=== PATIENT | male | born 1990 | race Caucasian/White ===

== ENCOUNTER 2019-05-05 16:42 | Emergency (ER) | payer OTHER, MEDICAID, SELFPAY ==
[2019-05-05 16:49] VITALS: BP 126/78; PULSE 69; RESP 16; TEMP 37.1; O2SAT 97; BMI 25.0
[2019-05-05 17:43] LABS: Add Manual Diff / Slide Review NO; Basophils Absolute Auto 0 /uL (0-100); Eosinophils Absolute Auto 200 /uL (0-450); Eosinophils Percent Auto 3.5 % (2-4); Hematocrit 43.5 % (41-53); Hemoglobin 15.2 g/dL (13.5-17.5); Lymphocytes Absolute Auto 1600 /uL (1100-4500); Lymphocytes Percent Auto 33.4 % (25-40); Mean Corpuscular HGB Conc 34.9 % (30-36); Mean Corpuscular Hemoglobin 30.8 PG (26-34); Mean Corpuscular Volume 88.2 fL (80-100); Monocytes Absolute Auto 600 /uL (0-900); Monocytes Percent Auto 12.6 % (3-14); Neutrophils Absolute Auto 2300 /uL (1500-7000); Neutrophils Percent Auto 49.5 % (50-75); Platelet Count 196 X10^3/uL (150-400); Red Blood Cell Count 4.93 X10^6/uL (4.5-5.9); Red Cell Distribution Width 12.5 % (11.6-14.8); White Blood Cell Count 4.7 X10^3/uL (4.5-11.0)
[2019-05-05 17:58] LABS: UR Morphine/Opiate cutoff 300 Negative (Negative); Ur Creatinine Normal (Normal); Ur Specific Gravity Normal (Normal); Urine Amphetamines Negative (Negative); Urine Barbiturates Negative (Negative); Urine Benzodiazepines Negative (Negative); Urine Cocaine Negative (Negative); Urine MDMA Negative (Negative); Urine Methadone Negative (Negative); Urine Methamphetamines Negative (Negative); Urine Oxycodone Negative (Negative); Urine Phencyclidine Negative (Negative); Urine Tetrahydrocannabinol Positive (Negative); Urine Tricyclic Antidepressant Negative (Negative); Urine pH Normal (Normal)
[2019-05-05 18:04] LABS: Acetaminophen < 10 ug/mL (10-30); Alanine Aminotransferase 26 IU/L (<50); Albumin 4.6 g/dL (3.5-5.0); Albumin Globulin Ratio 1.7 (1.0-2.8); Alkaline Phosphatase 62 U/L (38-126); Aspartate Aminotransferase 25 IU/L (17-59); BUN Creatinine Ratio 25.7 (6-22); Bilirubin Total 0.4 mg/dL (0.2-1.3); Blood Urea Nitrogen 18 mg/dL (9-20); Calcium 9.6 mg/dL (8.4-10.2); Carbon Dioxide 28 mmol/L (22-32); Chloride 102 mmol/L (98-107); Estimated Glomerular Filt Rate > 60.0 mL/min (>60); Ethanol (ETOH) < 10 mg/dL; Globulin 2.7 g/dL (1.7-4.1); Glucose 81 mg/dL (70-100); HEMOLYSIS < 15 (0-50); Potassium 4.1 mmol/L (3.4-5.1); Salicylate < 1.0 mg/dL (<20); Sodium 138 mmol/L (137-145); Total Protein 7.3 g/dL (6.3-8.2)
[2019-05-05 18:35] LABS: Thyroid Stimulating Hormone 2.35 uIU/mL (0.47-4.68)
--- NOTE | 2019-05-05 18:51 | CM.SWNOTE ---
Discharge Planning/Care Management ED Psychiatric Symptoms Assessment Start: 05/05/19 16:56 Freq: Status: Active Protocol: Document 05/05/19 17:30 KD (Rec: 05/05/19 18:29 KD [id number]) Psychiatric Symptoms Assessment Symptoms/Complaint Feels Depressed Onset off and on for about a year. Worse over last few days. Duration Changing Over Time History Of Same Yes Context New Medications,Significant Life Stressor Improves With Nothing Worsens With Nothing Associated Psychiatric Symptoms Depression,Racing Thoughts, Suicidal Ideation If Self Harm Admits Thoughts of Self Harm Details of Plan Denies plan. Vague thoughts of harm. overall depressed. Level of Consciousness Alert,Appropriate,Awake, Follows Commands Patient Orientation Name,Age,Birthday,Month,Date, Year,Day of Week,Place, Situation Patient Behavior/Mood Anxious,Cooperative,Suspicious ,Talkative Ability to Follow Directions Good Patient Cognition Impaired No Affect Description Anxious,Depressed Patient Appearance Unkempt Hallucination Type None Delusion Description Not Present Thought Process: Disorganized,Flight of ideas Depressive Symptoms Difficulty Concentrating, Difficulty Making Decisions, Feelings of Guilt,Feelings of Worthlessness,Hopelessness, Increased Anxiety,Increased Irritability,Isolating Oneself From Friends and Family,Loss of Energy,Loss of Interest in Activities,Sleeping More Than Usual,Recurrent Thoughts of or Suicide,Unhappiness Feelings of Hopelessness Yes Suicidal Ideation Vague Suicide Plan No Plan Homicidal Ideation None Nausea/Vomiting None CERAMICS TECHNICIAN - Microbiology Lab Technician Assessment Start: 05/05/19 18:20 Freq: Status: Active Protocol: Document 05/05/19 18:20 DPL (Rec: 05/05/19 18:50 DPL [id number]) CERAMICS TECHNICIAN/Microbiology Lab Technician Assessment Start date 05/05/19 Visit Start Time 05:10 End date 05/05/19 Presenting Problem Pt presents to the ED with severe, worsening depression and anhedonia. He states that his parents urged him to go to the ED due to increasing debilitation and worsening symptoms. He expresses not wanting to live, not feeling like I belong in this world, not finding anything meaningful, not feeling attached emotionally or physically. He denies a plan to end his life, but states that his life feels worthless, no hope. 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 He presents as detached, flat affect, evasive with answers to questions at times with responding I just don't know, I don't know anything. He is actively wanting help and is willing to pursue inpt MH treatment. This CERAMICS TECHNICIAN assessed him as high risk for this depression worsening and becoming a suicide risk. Current Behavioral Health Provider(s) Pt does see a therapist [facility], Ph. # Simeon [facility], which he has only seen once, but has plans to continue with. He was started on Lexapro 10mg 1- month ago, with no benefit. Psychiatric Hospitalizations (date(s)/ No location) Support System(s) Grandmother, local uncle. His parents reside in [place] , but are supportive by phone. School/Work Unemployed Legal Matters - Outstanding Issues N/A Orientation (Person/Place/Time) Pt is oriented X3, decisional. Affect Flat, sad. Thought Content - Specify/Describe Pt is obsessed with all of his Obsessions, Delusions, Hallucinations failures. He states that all he can think of is how bad his life is and what a failure he has been for a long time. He' s unable to identify anything meaningful in his life, and feels like he is barely existing. Thought Processes (Gecfkuo-Xmbrcoqb-Bvfu Thought blocking, somewhat Flpwglmi-Anbzaxlk-Nfavpqxqjx- disorganized, congruent at Ejjehxdbqpktzo-Joiyqbs-Csrmimxedpmk- other times. Thought Blocking) Speech (Hfajuo-Qcpx-Nyrmcsx-Rapid-Soft- Very controlled speech, on the Loud-Pressured) verge of agitation. Motor (Ssvwgm-Cpcicspzc-Ecex-Other) Slow Insight (Present-Partially Present- Impaired Impaired) Judgement (Intact-Impaired) Impaired Impulse Control (Adequate-Impaired) Impaired. Pt states he drove around aimlessly until finally coming to the ED for help. Memory (Elbjwschn-Dqytul-Tnsriw, Intact Impaired-Intact) Concentration (Intact-Impaired) Impaired Attention (Intact-Impaired) Hard to assess, he can focus with intention when he wants to. Behavior (Appropriate-Inappropriate) Appropriate Suicidal Ideation (Plan) Passive suicidal ideation with no plan. Intervention CERAMICS TECHNICIAN met with pt and assessed status and risk, as well as resources and services currently being utilized in the community. He is assessed as high risk for self harm and poor judgement for maintaining safety. He is wanting inpt MH support after meeting w/CERAMICS TECHNICIAN and discussing options. CERAMICS TECHNICIAN is faxing clinicals to [facility] for screening, will continue with this plan. Pt has been medically cleared. RA Plan Primary plan is for inpt MH hospitalization due to high risk factors. CERAMICS TECHNICIAN also discussed the availability of the Crisis Line and plan to f/ u with his therapist for continued outpatient therapy following inpt stabilization.
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
[2019-05-05 19:15] VITALS: BP 118/60; PULSE 50; RESP 12; O2SAT 98
--- NOTE | 2019-05-05 21:11 | PC.NURSE ---
Pt given a sandwich and water.
[2019-05-05 23:00] VITALS: BP 120/62; PULSE 55; RESP 12; O2SAT 98
--- NOTE | 2019-05-06 00:37 | PC.NURSE ---
At 0041 on 05/06/2019,25 ml heparin infused and it was running at 1,000 units per hour when transported.
[2019-05-06 02:57] VITALS: BP 119/60; PULSE 56; RESP 14; O2SAT 98
--- NOTE | 2019-05-06 05:14 | PC.NURSE ---
We are still waiting to hear from [facility] with their intake assessment for placement voluntarily.He has been allowed to rest in bed tonight as we await to hear from [facility].
[2019-05-06 08:00] VITALS: BP 130/70; PULSE 62; RESP 18; O2SAT 95
[2019-05-06 08:28] VITALS: BP 130/74; PULSE 54; RESP 14; O2SAT 96
--- NOTE | 2019-05-06 08:29 | PC.NURSE ---
Patient stated he is feeling much better after a warm shower, and it helped reset his mind. He is eating breakfast now and talking to me a little more.
[2019-05-06 11:29] VITALS: BP 123/62; PULSE 78; RESP 16; TEMP 37; O2SAT 99
--- NOTE | 2019-05-06 11:44 | PC.NURSE ---
Father called, gave him an update.
[2019-05-06 13:15] VITALS: BP 117/63; PULSE 64; RESP 16; O2SAT 97
--- NOTE | 2019-05-06 15:45 | CM.SWNOTE ---
Placement Efforts Cont reviewed chart this morning, placed call to [facility] at approx [phone]. Pt was refused last night on grounds that he was not medically cleared although was medically cleared from ED's notes and labs; and Dr Talbert updated this PLATE KEEPER this AM that another provider at [facility] had refused admission because now Nagi was not acute enough for admission; from a psych perspective Spoke w/ Red Bai P# [phone] community relations/outreach w/[facility] asking why the refusal? He reiterated that Nagi, w/no current suicidal ideation w/plan, did not meet criteria to be admitted to their acute hospital Then placed call to [facility] ;faxed referral packet and Nagi was accepted at their [place] location. This PLATE KEEPER coordinated the admission details w/ Ankita and Minh at [facility] to include BLS p/u time (scheduled by [facility]/ ED) for 1320, accepting physician: Dr Braun location: [address] [place] [address] 7th floor Asim RN to RN report P# [phone]. Then met w/Nagi and reviewed plan; Nagi had received no medication in our ER, he remained polite and pleasant, he admitted he had never been to an inpt unit and did not know what to expect. I provided a printed information sheet from [facility] about the admission process and what to bring and not bring, visiting hours etc. Reiterated to Nagi numerous times that he was a voluntary admission there and no one could legally hold him against his will. We discussed Medicaid ins, authorization process, and I suggested that this would likely be a short term stabilization stay and he remained agreeable. Encouraged Nagi to reschedule his psych appt, arranged for Wednesday AM, on Wednesday once he knew more about length of stay at [facility]. Nagi and nursing staff were communicating w/parents to update [facility]
== END 2019-05-06 13:30 ==
PROVIDERS: Nurse Practitioner Family; Emergency Provider Emergency Medicine
DX: F32.89 Other specified depressive episodes (principal)
CPT/HCPCS: 80053; 80305; 80320; 80329; 81003; 84443; 85025; 99284; G0480